=== PATIENT | female | born 1950 | race Caucasian/White ===

== ENCOUNTER 2017-12-28 07:57 | Day surgery (SDC) | payer MEDICARE, MEDICAID ==
[2017-12-28] MEDS ORDERED: Lactated Ringer's 1,000 ML IV ONE (09:30)
--- NOTE | 2017-12-28 09:31 | CP.SDSHP ---
Same Day Surgery H & P - History Proposed Procedure: egd. colonoscopy Pre-Op Diagnosis: dysphagia. screening for colon cancer - Previous Medical/Surgical History Cardiac: Hypertension Endocrine/Metabolic: Other (osterporosis, ) - Physical Exam Vital Signs: Vital Signs 12/28/17 08:16 Temperature 97.5 F L Pulse Rate 69 Respiratory 19 Rate Blood Pressure 144/74 O2 Sat by Pulse 99 Oximetry Mental Status: Alert & Oriented x3 Neuro: WNL Heart: WNL Lungs: WNL GI: WNL - Impression Impression: dysphagia. screening for colon cancer Pt. Evaluated Today:Candidate for Anesthesia & Procedure: Yes - Date & Time Date: 12/28/17 Time: 09:30 Short Stay Discharge - Short Stay Discharge Admitting Diagnosis/Reason for Visit: ENCOUNTER FOR SCREENING, DYSPHAGIA UNSPECIFIED, CO Disposition: HOME/ ROUTINE
[2017-12-28] MEDS ORDERED: Propofol 10 mg/ml Inj (20 ML) ONE (09:36)
[2017-12-28] MEDS ORDERED: Pantoprazole 40 mg EC Tab PO STA (09:36)
[2017-12-28] MEDS ORDERED: ePHEDrine 50 mg/ml Inj ONE (09:51)
[2017-12-28] MEDS ORDERED: Pantoprazole 40 mg EC Tab PO ONE (10:45)
[2017-12-28 15:07] VITALS: TEMP 98.2
[2017-12-28 15:08] VITALS: RESP 14; O2SAT 100
[2017-12-28 15:12] VITALS: BP 127/76; PULSE 73
== END 2017-12-28 11:20 | disposition home or self-care (01) ==
LOC: C.ENDO 07:57
PROVIDERS: ATTEND Internal Medicine Gastroenterology
DX: Z12.11 Encounter for screening for malignant neoplasm of colon (principal); R13.10 Dysphagia, unspecified; I10 Essential (primary) hypertension; K21.0 Gastro-esophageal reflux disease with esophagitis; K29.70 Gastritis, unspecified, without bleeding; K64.1 Second degree hemorrhoids
CPT/HCPCS: 43239; 88305; G0121; J2001; J2704; J3010; J7120